=== PATIENT | male | born 1990 | race Caucasian/White ===

== ENCOUNTER 2020-08-14 22:58 | Emergency (ER) | payer BC ==
[~2020-08-14] VITALS: Ht 167.6 cm; Wt 72.6 kg
[~2020-08-14 22:58] MED LIST: BACTRIM DS TAB1 EACH PO; HYDROCODON-ACE1 EAC7 PO; NOHOMEMEDICATIONS; PERCOCET 5-3251 EACH PO
[2020-08-14 23:49] VITALS: BP 115/70
== END 2020-08-14 23:52 | disposition home or self-care (01) ==
LOC: M.ERS 22:58
DX: S51.812A Laceration without foreign body of left forearm, initial encounter (principal); F17.210 Nicotine dependence, cigarettes, uncomplicated; Z88.0 Allergy status to penicillin; Y08.89XA Assault by other specified means, initial encounter; Y93.89 Activity, other specified; Y92.89 Other specified places as the place of occurrence of the external cause; Y99.8 Other external cause status

== ENCOUNTER 2021-04-10 21:08 | Emergency (ER) | payer BC ==
[~2021-04-10] VITALS: Ht 175.3 cm; Wt 77.1 kg
[2021-04-10] MEDS ORDERED: AUGMENTIN (21:13)
[2021-04-10 22:35] VITALS: BP 122/62
== END 2021-04-10 22:35 | disposition home or self-care (01) ==
LOC: M.ERS 21:08
DX: S50.312A Abrasion of left elbow, initial encounter (principal); S50.311A Abrasion of right elbow, initial encounter; F17.210 Nicotine dependence, cigarettes, uncomplicated; Z88.0 Allergy status to penicillin; W14.XXXA Fall from tree, initial encounter; Y93.89 Activity, other specified; Y92.89 Other specified places as the place of occurrence of the external cause; Y99.8 Other external cause status